=== PATIENT | male | born 2000 | race African-American/Black ===

== ENCOUNTER 2022-04-27 15:09 | Emergency (ER) | payer SELFPAY ==
[~2022-04-27] VITALS: Ht 177.8 cm; Wt 80.0 kg
[2022-04-27 15:32] VITALS: BP 139/79
[2022-04-27] MEDS ORDERED: BENZ100C86 MT (19:12)
== END 2022-04-27 19:51 | disposition home or self-care (01) ==
LOC: ER 15:09
DX: R05.9 Cough, unspecified (principal); J45.909 Unspecified asthma, uncomplicated
CPT/HCPCS: 71046; 99283